=== PATIENT | female | born 1960 | race Caucasian/White ===

== ENCOUNTER → 2023-02-15 | Outpatient (CLI) | payer OTHER, SELFPAY ==
--- NOTE | 2023-02-15 | CYSPIN_PTH ---
PATIENT: ELEAZAR SILVA LOC: [facility] U#:[id number] AGE/SX: 62/F ROOM: RE02/15/[address]: Dr. Melissa Thomas MD : 1960 BED: DIS: 02/15/2023 SPEC #: [id number] RECD: 02/16/23 11:46 STATUS: EMILIANO CALVO #: [id number] MARY: 02/15/23 00:[address]: Melissa Thomas DEPT: CYTOLOGY RECD BY: Alex Silvestre ENTERED: 02/16/23 11:46 SP TYPE: CYSPIN FL OTHR DR: Iveth Mendoza, POLICY SPECIALIST-C Tissues: Urine Procedures: Pap Stain (control) Special Stain Group II Cytospin Fluid HEADER OPERATION: Not noted PRE-OP DIAGNOSIS: Gross hematuria TISSUE SUBMITTED: Urine for cytology DIAGNOSIS CYTOLOGY Urine for cytology (cytospin): Negative for high-grade urothelial carcinoma (NHGUC), Mily System Category II. AM:randal 02/17/2023 COMMENT The Mily System for urine cytology diagnostic categorization was used in the evaluation of this case. CYTOLOGY STUDY Slides are reviewed. CYTOLOGY GROSS Received is 40 ml of light yellow fluid labeled with the patient's name and and designated per the requisition as urine. Submitted for cytology preparation. / randal 02/16/2023 TC:5 CPT: 84348
[2023-02-15 18:02] LABS: Cytology, Body Fluid / CSF SEE PATHOLOGY REPORT
== END | disposition home or self-care (01) ==
PROVIDERS: PCP Nurse Practitioner Adult Health; Visit Provider Urology
DX: R31.0 Gross hematuria (principal)
CPT/HCPCS: 88108; 88313